=== PATIENT | male | born 1960 | race Caucasian/White ===

== ENCOUNTER 2016-10-09 00:32 | Emergency (ER) ==
[2016-10-09 00:48] VITALS: BP 118/76
== END 2016-10-09 01:30 | disposition left against medical advice (07) ==
LOC: ER 00:32
DX: Z53.21 Procedure and treatment not carried out due to patient leaving prior to being seen by health care provider (principal)
CPT/HCPCS: L1830; L3650

== ENCOUNTER 2016-10-09 10:05 | Emergency (ER) | payer OTHER ==
[2016-10-09 10:10] VITALS: BP 100/65
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
[2016-10-09] MEDS ORDERED: DIPH/PERTUSS(ACELL)/TETANUS VAC/PF 0.5 ML SYR (>=10YO) IM ONE (10:44)
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
--- NOTE | 2016-10-09 12:53 | ER Document Report ---
Doctor's Note Notes: 10/09/16 12:51 Addendum to ED chart: Past medical history of bipolar disorder. Denies any other medical conditions for which he takes routine medications. Patient is a recovering alcoholic and does not drink alcohol and did not drink any alcohol last night, at the time of the event.
== END 2016-10-09 11:01 | disposition home or self-care (01) ==
LOC: ER 10:05
DX: S00.11XA Contusion of right eyelid and periocular area, initial encounter (principal); S10.81XA Abrasion of other specified part of neck, initial encounter; R04.0 Epistaxis; R55 Syncope and collapse; R20.0 Anesthesia of skin; Y04.2XXA Assault by strike against or bumped into by another person, initial encounter; Y93.89 Activity, other specified; Y92.59 Other trade areas as the place of occurrence of the external cause; F31.9 Bipolar disorder, unspecified; R11.2 Nausea with vomiting, unspecified; F17.210 Nicotine dependence, cigarettes, uncomplicated; Z88.0 Allergy status to penicillin
CPT/HCPCS: 70450; 90471; 90715; 99284